=== PATIENT | male | born 1950 | race Caucasian/White ===

== ENCOUNTER 2023-01-22 06:52 | Day surgery (SDC) | payer MEDICARE, BC ==
[~2023-01-22] VITALS: Ht 182.9 cm; Wt 104.9 kg
[~2023-01-22 06:52] MED LIST: ALLEGRA 180MG180 MG PO; ASPIRIN 81M81 MG/TA2 PO; ASPIRIN E.C. 8181 MG PO; BENADRYL25 M2 PO; BETAPACE 80MG80 MG PO; CEPHALEXIN500 M1 PO; COLACE 100100 MG/CAP PO; COMPLETE MULTI1 TAB PO; FLONASE NASAL S16 GM NS; FLONASEALLERGY NS; LIPITOR 40MG TA40 MG PO; MUCINEX 60600 MG/TA1 PO; MULTIPLE VITAMI1 CAP PO; PEPCID 20MG TAB20 MG PO; PRINIVIL5 MG PO; SEREVENT IH; SINGULAIR 110 MG/TAB PO; ULTRAM 50MG TAB50 MG PO; ULTRAM ER100 MG PO; VENTOLIN0.09 MG IH
[2023-01-22 07:23] VITALS: BP 139/99; PULSE 54; TEMP 98
[2023-01-22] MEDS ORDERED: DOXYCYCLINE 10100 MG PO (07:44)
[2023-01-22 09:12] VITALS: BP 145/89; PULSE 53
--- NOTE | 2023-01-22 09:16 | NUR ---
Refer to [facility] report for procedural meds and notes
[2023-01-22 10:15] VITALS: BP 152/91; PULSE 50
[2023-01-22] MEDS ORDERED: CLEOCIN HCL300 MG PO (10:23)
[2023-01-22 10:30] VITALS: BP 152/94; PULSE 48
[2023-01-22 10:45] VITALS: BP 150/90; PULSE 51
[2023-01-22 11:00] VITALS: BP 151/91; PULSE 53
--- NOTE | 2023-01-22 11:28 | NUR ---
Pt ambulated to [facility] with a steady gait, scheduled for a Loop recorder removal and placement. Meds and HX reviewed with the pt. Consent form signed. Pt went back to the procedure and only received local anesthetic. Came back to [facility] to recover. Pt recovered with us for about an hr. Food and drinks offered, pt accepted a coffee. Pt was given discharge education and information, no questions at this time. Pt exited the unit with a steady gait.
== END 2023-01-22 11:16 | disposition home or self-care (01) ==
LOC: COL.CAR 06:52
DX: T81.30XA Disruption of wound, unspecified, initial encounter (principal); R00.0 Tachycardia, unspecified; I10 Essential (primary) hypertension; E78.2 Mixed hyperlipidemia; I42.8 Other cardiomyopathies; Z79.899 Other long term (current) drug therapy
CPT/HCPCS: J0690